=== PATIENT | female | born 1990 | race Caucasian/White ===

== ENCOUNTER 2017-01-18 17:32 | Emergency (ER) | payer OTHER ==
[~2017-01-18] VITALS: Ht 160 cm; Wt 81.6 kg
[~2017-01-18 17:32] MED LIST: FLEXERIL10 MG PO; MOTRIN800 MG PO; NORFLEX100 MG PO; ORTHO TRI-CYCLE1 TA2 PO; PERCOCET 325 MG1 TA2 PO; TRAMADOL50 MG PO; URIBEL1 CAP PO; ZOFRAN4 M1 SL
--- NOTE | 2017-01-18 19:06 | ED GI/GU/ABDOMINAL COMPLAINT ---
History of Present Illness General Chief Complaint: Female Urogenital Problems Stated Complaint: L OVARIAN PAIN Source: patient Exam Limitations: no limitations Vital Signs & Intake/Output Vital Signs & Intake/Output ED Intake and Output 03/ 0000 03 1200 Intake Total Output Total Balance Patient 180 lb Weight Allergies Coded Allergies: poison bartolo extract (Severe, ANAPHYLAXIS 10/04/16) poison oak extract (Severe, ANAPHYLAXIS 10/04/16) poison sumac extract (Severe, ANAPHYLAXIS 10/04/16) Reconcile Medications Hydrocodone/Acetaminophen (Vicodin 5-300 MG Tablet) 5 MG-300 MG TABLET 1 TAB PO Q6 PRN pain Ibuprofen 600 MG TABLET 1 TAB PO TID PRN pain with food Levonorgestrel (Mirena) 20 MCG/24 HOUR (5 YEARS) IUD CONTROL (Reported) Ondansetron (Zofran Odt) 4 MG TAB.RAPDIS 1 TAB SL TID PRN nausea Triage Note: RECEIVED 26 YO FEMALE C/O LLQ ABBDOMINAL PAIN RADIATING TO BACK X ONE MONTH WITH INTERMITTENT NAUSEA. PT HAS A MIRANA IUD AND WITH HX OF KIDNEY STONES Triage Nurses Notes Reviewed? yes ? n Is pt currently ? No HPI: Patient is a 26 year old female presents complaining of left pelvic pain radiating to the back x 1 month. Pain is waxing and waning, currently 6/10, at its worse is 8/10. Mirena IUD placed 1 year ago, had cramping when the IUD was placed, none since then. Pain feels different than previous kidney stone pain. Denies fevers, chills, vaginal bleeding, vaginal discharge. (VERONICA PRADO) Past History Travel History Traveled to [place] past 21 day No Medical History Any Pertinent Medical History? 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 No (VERONICA PRADO) Review of Systems Review of Systems Constitutional: Denies: chills, fever. EENTM: Reports: no symptoms. Respiratory: Reports: no symptoms. Cardiovascular: Reports: no symptoms. GI: Reports: see HPI. Genitourinary: Reports: pain. Denies: dysuria. Musculoskeletal: Reports: no symptoms. Skin: Reports: no symptoms. Neurological/Psychological: Reports: no symptoms. Hematologic/Endocrine: Reports: no symptoms. Immunologic/Allergic: Reports: no symptoms. (VERONICA PRADO) Physical Exam Physical Exam General Appearance: well developed/nourished, alert, awake Head: atraumatic, normal appearance Eyes: Bilateral: normal appearance, PERRL, EOMI. Ears, Nose, Throat, Mouth: hearing grossly normal, moist mucous membrane Neck: normal inspection, supple, full range of motion Respiratory: no respiratory distress Cardiovascular: regular rate/rhythm Gastrointestinal: normal bowel sounds, soft, left pelvic tenderness Back: normal inspection, normal range of motion Extremities: normal range of motion Neurologic/Psych: no motor/sensory deficits, awake, alert, oriented x 3, normal gait, normal mood/affect Skin: intact, normal color, warm/dry Core Measures ACS in differential dx? No Severe Sepsis Present: No Septic Shock Present: No (VERONICA PRADO) Progress Differential Diagnosis: appendicitis, ectopic , endometritis, hernia, intrauterine , kidney stone, ovarian cyst, ovarian torsion, PID/ cervicitis, SBO, UTI/pyelo Plan of Care: Orders Procedure Date/time Status URINE 01/18 1757 Complete URINALYSIS 01/18 1757 Complete Laboratory Tests 01/18/17 1907: Urine Color YEL, Urine Clarity CLEAR, Urine pH 6.5, Ur Specific [place] 1.025, Urine Protein NEG, Urine Ketones NEG, Urine Nitrite NEG, Urine Bilirubin NEG, Urine Urobilinogen 0.2, Ur Leukocyte Esterase NEG, Ur Microscopic EXAM NOT REQUIRED, Urine Hemoglobin NEG, Urine Glucose NEG, Urine Test NEGATIVE Patient hemodynamically stable, no peritoneal signs on exam. Ambulating freely throughout ED stay without difficulty. Results of ultrasounds discussed with patient. Patient instructed to follow up with her sales representative electric service for further evaluation and management. (VERONICA PRADO) Diagnostic Imaging: Viewed by Me: Ultrasound. Discussed w/RAD: Ultrasound. Initial ED EKG: none (VERONICA PRADO) Departure Departure Time of Disposition: 2204 Disposition: HOME OR SELF CARE Condition: Stable Clinical Impression Primary Impression: Ovarian cyst Qualifiers: Laterality: left Qualified Code: N83.202 - Unspecified ovarian cyst , left side Referrals: KOLE RIOS,RICKI MUÑOZ MD,MARYANA SOTO (PCP/Family) Additional Instructions: Follow-up with your sales representative electric service this week for further evaluation. Return to the emergency department if pain uncontrollable, lightheadedness, feeling that you're going to pass out, or worsening of symptoms Departure Forms: Customer Survey General Discharge Information Prescriptions: Current Visit Scripts Ondansetron (Zofran Odt) 1 TAB SL TID PRN nausea #10 TAB Ibuprofen 1 TAB PO TID PRN pain #30 TAB with food Hydrocodone/Acetaminophen (Vicodin 5-300 MG Tablet) 1 TAB PO Q6 PRN pain #10 TAB (VERONICA PRADO) PA/BUS ATTENDANT Co-Sign Statement Statement: ED Attending supervision documentation- [] I saw and evaluated the patient. I have also reviewed all the pertinent lab results and diagnostic results. I agree with the findings and the plan of care as documented in the PA's/BUS ATTENDANT's documentation. [X] I have reviewed the ED Record and agree with the PA's/BUS ATTENDANT's documentation. [] Additions or exceptions (if any) to the PAs/BUS ATTENDANT's note and plan are summarized below: [] (COMFORT RIOS,KASHIF Downs)
[2017-01-18] MEDS ORDERED: MIRENA1 EACH (19:16)
--- NOTE | 2017-01-18 21:56 | ULTRASOUND REPORT ---
EXAMINATION: ULTRASOUND PELVIC, COMPLETE CLINICAL INFORMATION: Left ovarian pain. COMPARISON: CT scan abdomen pelvis 10/06/2015 TECHNIQUE: Transvaginal: Used to better visualize pelvic structures Transabdominal: Not adequate for visualization Spectral Doppler and color Doppler exam was utilized. LMP: 03/2016, IUD placed FINDINGS: UTERUS: IUD in the endometrial cavity. The uterus measures 8.1 x 3.6 x 3.1 cm. Cervical length 2.3 cm. Endometrial thickness 0.7 cm. Nabothian cysts at cervix. ADNEXA: Ovarian vascularity:Doppler demonstrates both arterial and venous vascular flow in the left ovary. No evidence of ovarian torsion. Right Ovary: Not seen. Surgically removed. Left Ovary: Complex cyst with low-level echoes consistent with a hemorrhagic cyst measuring 2.9 x 2.3 x 2.2 cm. There is an adjacent almost anechoic cyst measuring 2.4 x 1.1 x 1.4 cm. The left measures 4.2 x 3.2 x 3.9 cm. Left ovarian volume 27.7 mL. Cul-de-sac: No Fluid IMPRESSION: 1. 2.9 cm Hemorrhagic cyst in left ovary. 2. 2.4 cm Mildly complex cyst in left ovary
--- NOTE | 2017-01-18 21:58 | ULTRASOUND REPORT ---
EXAMINATION: US RETROPERITONEAL COMPLETE (RENAL) CLINICAL INFORMATION: History of kidney stones bilateral. Left lower abdominal pain.. COMPARISON: CT scan abdomen pelvis 10/06/2015. Renal ultrasound 09/25/2015. Plain film abdomen 09/25/2015 TECHNIQUE: Real-time imaging of the kidneys and bladder. Color Doppler exam utilized. FINDINGS: RIGHT KIDNEY: 10.4 x 6.4 x 4.8 cm (SAG x AP x TRV). The kidney is normal in size, contour, and echogenicity. Renal cortical thickness is normal. No calculi or focal parenchymal lesions. No hydronephrosis. LEFT KIDNEY: 10.4 x 5.7 x 5.5 cm (SAG x AP x TRV). The kidney is normal in size, contour, and echogenicity. Renal cortical thickness is normal. No calculi or focal parenchymal lesions. No hydronephrosis. BLADDER: Bladder is partially filled measuring 7 3 mm. Ureteral jets are present bilaterally. IMPRESSION: Normal ultrasound of kidneys and bladder. No renal stone or hydronephrosis.
[2017-01-18] MEDS ORDERED: IBUPROFEN600 M1 PO (22:07)
[2017-01-18] MEDS ORDERED: VICODIN 5-3001 EACH PO (22:07)
[2017-01-18] MEDS ORDERED: ZOFRAN ODT4 M1 SL (22:07)
[2017-01-18 22:19] VITALS: BP 116/63
== END 2017-01-18 22:19 ==
LOC: ERH 17:32
DX: N83.202 Unspecified ovarian cyst, left side (principal)
CPT/HCPCS: 76775; 81003; 81025